=== PATIENT | female | born 1940 | race Caucasian/White ===

== ENCOUNTER 2016-12-14 08:41 | Day surgery (SDC) | payer MEDICARE, BC ==
[~2016-12-14 08:41] MED LIST: ALBUTEROL2.5 MG/3 M INH; DURAGESIC1 EA10 TD; FERROUS SULFAT325 MG PEG; GLYCOPYRROLATE PEG; LEVOTHYROXINE100 MC1 PEG; LEXAPRO5 M1 PEG; LORAZEPAM2 MG/1 M4 PEG; MAGIC MOUTHWASH SSP; MORPHINE S100 MG/5 M PEG; MUCINEX DM GT; PREDNISOLO15 MG/5 ML PO; PREDNISOLON5 MG/5 M1 PEG; PROCHLORPERAZIN10 M1 PEG; SODIUM CHLOR1 GM/TAB PEG; TOBREX3.5 G1 OP
[2016-12-14 09:42] LABS: BASO % 0.1 % (0-2); EOSINOPHIL ABSOLUTE COUNT 0.1 tho/cmm (0.0-0.7); HCT-HEMATOCRIT 27.2 % (34.0-49.0); HGB-HEMOGLOBIN 9.2 gm/dl (12.0-15.5); IMMATURE GRANULOCYTES ABSOLUTE 0.01 tho/cmm (0-0.03); IMMATURE GRANULOCYTES PERCENT 0.1 % (0-0.3); LYMPH % 6.1 % (20-45); LYMPH ABSOLUTE COUNT 0.4 tho/cmm (0.8-4.5); MCH (MEAN CORPUSCULAR HGB) 30.3 pg (28.0-32.0); MCHC MEAN CORPUSCULAR HGB CONC 33.8 % (32.0-36.0); MCV (MEAN CELL VOLUME) 89.5 fl (82.0-96.0); MEAN PLATELET VOLUME 8.6 cmc (9.4-12.4); MONO % 11.8 % (0-12); MONOCYTE ABSOLUTE COUNT 0.8 tho/cmm (0.0-1.2); NEUTROPHIL ABSOLUTE COUNT 5.6 tho/cmm (1.6-8.0); NEUTROPHIL-AUTOMATED 5.6 tho/cmm (1.6-8.0); NEUTROPHILS % 80.9 % (40-80); PLATELET COUNT 308 tho/cmm (150-450); RED BLOOD COUNT 3.04 mil/cmm (4.00-5.20); RED CELL DISTRIBUTION WIDTH 13.9 % (12.4-16.4); WHITE BLOOD COUNT 6.9 tho/cmm (4.0-10.0)
[2016-12-14 09:51] LABS: ANION GAP 10 mmol/L (0-20); BLOOD UREA NITROGEN 24 mg/dl (6-24); CALCIUM 9.2 mg/dl (8.5-10.5); CARBON DIOXIDE-VENOUS 33 mmol/L (22-32); CHLORIDE 94 mmol/l (96-110); CREATININE 0.82 mg/dl (0.50-1.10); GLUCOSE 95 mg/dL (70-110); POTASSIUM 3.7 mmol/L (3.7-5.1); SODIUM 133 mmol/L (135-145); eGFR VALUE FOR BLACK 82 mL/Min
[2016-12-14 09:59] LABS: PROTHROMBIN TIME 12.1 SECONDS (9.0-13.6)
== END 2016-12-14 12:00 ==
LOC: RADSP 08:41 → SHSB 08:45
PROVIDERS: Radiology Diagnostic Radiology
PROC: 0D20XUZ Change Feeding Device in Upper Intestinal Tract, External Approach (ICD-10-PCS; principal; 2016-12-14)
DX: Z46.59 Encounter for fitting and adjustment of other gastrointestinal appliance and device (principal); E78.00 Pure hypercholesterolemia, unspecified; I10 Essential (primary) hypertension; M17.10 Unilateral primary osteoarthritis, unspecified knee; C10.9 Malignant neoplasm of oropharynx, unspecified; C77.0 Secondary and unspecified malignant neoplasm of lymph nodes of head, face and neck; Z79.899 Other long term (current) drug therapy; Z88.0 Allergy status to penicillin; Z85.3 Personal history of malignant neoplasm of breast; Z90.89 Acquired absence of other organs; Z93.0 Tracheostomy status; Z98.41 Cataract extraction status, right eye; Z98.42 Cataract extraction status, left eye; Z98.890 Other specified postprocedural states
CPT/HCPCS: J3010; Q9966